=== PATIENT | male | born 1990 | race Caucasian/White ===

== ENCOUNTER 2025-02-25 03:38 | Emergency (ER) | payer OTHER, SELFPAY ==
[2025-02-25] MEDS: PROPARACAINE 0.5% OPHTH SOL 1 DROPS EYE-BOTH (03:53)
[2025-02-25] MEDS: FLUORESCEIN 1 MG STRIP EYE-LEFT (03:53)
[2025-02-25 03:55] VITALS: BP 135/86; PULSE 56; RESP 16; TEMP 36.9; O2SAT 96; BMI 21.2
--- NOTE | 2025-02-25 04:04 | ED_ITS ---
HPI - Eye Problem General Chief complaint: Eye Problems Stated complaint: Foreign Liquid in L Eye; Pain Time Seen by Provider: 02/25/25 03:42 Source: patient Mode of arrival: Ambulatory History of Present Illness HPI Narrative: 34-year-old gentleman presents with left eye pain, redness, with clear drainage after cleaning out his extended daily contacts with his 's contact lens solution and then placing the contact lens back into his left eye again. He denies any foreign body sensation, blurred vision, headache dizziness. Other than what is stated 14 point review of system is negative. Related Data Previous Rx's ?Medication ?Instructions ?Recorded sulfacetamide sodium 10 % eye drops 1 drp EYE-LEFT Q3H 5 days #15 mL 02/25/25 Allergies Allergy/AdvReac Type Severity Reaction Status Date / Time No Known Drug Allergies Allergy Verified 02/25/25 03:55 Review of Systems Review of Systems ROS Unobtainable: All systems reviewed & are unremarkable except as noted in HPI and below Patient History Smoking Status: Never smoker Exam Narrative Exam Narrative: GENERAL: [34] year old patient appears stated age. Well-developed patient, in mild distress. HEAD: Atraumatic. Normocephalic. EYES: Pupils equal round and reactive. Extraocular motions intact. No scleral icterus. Left eye injected and clear discharge EXTREMITIES: No edema or joint tenderness. BACK: Nontender without deformity or crepitance. No flank tenderness. NEURO: AOx3. SKIN: No rash or erythema of visible areas Initial Vital Signs Initial Vital Signs: Vital Signs Temperature 98.5 F 02/25/25 03:55 Pulse Rate 56 L 02/25/25 03:55 Respiratory Rate 16 02/25/25 03:55 Blood Pressure 135/86 02/25/25 03:55 Pulse Oximetry 96 02/25/25 03:55 Oxygen Delivery Method Room Air 02/25/25 03:55 Course Orders Ordered: Discontinued Medications Fluorescein Sodium (Fluorescein 1 Mg Strip) 1 mg EYE-LEFT NOW ONE Stop: 02/25/25 03:51 Last Admin: 02/25/25 03:53 Dose: 1 mg Documented By: KASEY Proparacaine HCl (Proparacaine 0.5% Ophth Ebony) 1 drops EYE-BOTH NOW ONE Stop: 02/25/25 03:51 Last Admin: 02/25/25 03:53 Dose: 1 drop Documented By: KASEY Vital Signs Vital signs: Vital Signs - 8 hr 02/25/25 03:55 Temperature 98.5 F Pulse Rate 56 L Respiratory Rate 16 Blood Pressure 135/86 Pulse Oximetry 96 Oxygen Delivery Method Room Air MDM - Eye Problem MDM Narrative Medical decision making narrative: Vital signs, nurse triage note, medication list, previous ER visits, and all i maging studies reviewed. Wood's lamp fluorescein strip with no uptake and 2 drops of proparacaine applied. Differential diagnosis conjunctivitis bacterial versus viral versus corneal abrasion. DC home on sulfacetamide eye rx Discharge Plan Departure Patient Disposition: Home Clinical Impression: Acute bacterial conjunctivitis Instructions: DI for Conjunctivitis Activity Restrictions/Additional Instructions: Return with new or worsening symptoms. Take your medicine as directed. Follow up with PCP in 1-2 weeks if no improvement in symptoms. Prescriptions: New sulfacetamide sodium 10 % drops 1 drp EYE-LEFT Q3H 5 Days Qty: 15 0RF Stand Alone Forms: Patient Portal/API
== END 2025-02-25 04:35 | disposition home or self-care (01) ==
PROVIDERS: Emergency Provider Family Medicine
DX: H10.32 Unspecified acute conjunctivitis, left eye (principal)
CPT/HCPCS: 99282